=== PATIENT | female | born 1940 | race Caucasian/White ===

== ENCOUNTER 2017-06-02 22:36 | Inpatient (IN) | payer MEDICARE ==
[~2017-06-02] VITALS: Ht 157.5 cm; Wt 56.8 kg
[~2017-06-02 22:36] MED LIST: ACYC-202 PO; ASPI-1094 PO; BIOT10006 PO; CALC-206 PO; CARB200T40 PO; CARB25PO PO; DIPH1TAB PO; FERR134T2 PO; HOME O2; LEVO112T25 PO; LOSA25TA96 PO; MULT-1074 PO; NAPR500T4 PO; POTA10TA19 PO; RAW PROBIOTICS PO; SUPER LYSINE PO; TRIA1CAP6 PO
[2017-06-02] MEDS ORDERED: ondansetron/PF 4mg/2ml inj IV ONE (22:50)
[2017-06-02 23:09] LABS: BASOPHILS % (AUTO) 0.2 % (0-1); EOSINOPHILS # (AUTO) 0.1 X10'3 (0-0.9); EOSINOPHILS % (AUTO) 2.4 % (0-6); HEMATOCRIT 29.9 % (35.0-45.0); HEMOGLOBIN 9.9 g/dl (12.0-16.0); LYMPHOCYTES # (AUTO) 0.6 X10'3 (1.1-4.8); LYMPHOCYTES % (AUTO) 9.4 % (21-51); MEAN CORPUSCULAR HEMOGLOBIN 30.4 PG (27.0-31.0); MEAN CORPUSCULAR HGB CONC 33.2 % (33.0-36.5); MEAN CORPUSCULAR VOLUME 91.7 FL (78-98); MEAN PLATELET VOLUME 6.1 FL (7.4-10.4); MONOCYTES # (AUTO) 0.5 X10'3 (0-0.9); MONOCYTES % (AUTO) 7.6 % (2-12); NEUTROPHILS # (AUTO) 4.9 X10'3 (1.8-7.7); NEUTROPHILS % (AUTO) 80.4 % (42-75); PLATELET COUNT 246 X10'3 (140-440); RED BLOOD COUNT 3.26 X10'6 (4.20-5.60); RED CELL DISTRIBUTION WIDTH 15.5 % (11.5-14.5); WHITE BLOOD COUNT 6.1 X10'3 (4.5-11.0)
[2017-06-02 23:21] LABS: PARTIAL THROMBOPLASTIN TIME 26 SECONDS (22-32); PROTHROMBIN TIME 10.1 SECONDS (9.0-12.0)
[2017-06-02 23:23] LABS: ALANINE AMINOTRANSFERASE 28 U/L (12-78); ALBUMIN 3.2 G/DL (3.4-5.0); ALBUMIN/GLOBULIN RATIO 0.8 (1.1-1.5); ALKALINE PHOSPHATASE 90 IU/L (46-116); ANION GAP 9 (8-16); ASPARTATE AMINO TRANSFERASE 26 U/L (10-37); BILIRUBIN,TOTAL 0.2 MG/DL (0.1-1.0); BLOOD UREA NITROGEN 40 MG/DL (7-18); BUN/CREATININE RATIO 34.5 (6.6-38.0); CALCIUM 9.1 MG/DL (8.5-10.1); CHLORIDE 107 MMOL/L (99-107); CREATININE 1.16 MG/DL (0.40-0.90); GLUCOSE 129 MG/DL (70-104); POTASSIUM 3.9 MMOL/L (3.5-5.1); SODIUM 140 MMOL/L (135-145); TOTAL CARBON DIOXIDE 24.2 MMOL/L (24-32); TOTAL PROTEIN 7.3 G/DL (6.4-8.2); eGFR 45 ML/MIN
[2017-06-02 23:58] LABS: CLARITY,URINE SLIGHTLY CLOUDY (Clear); COLOR,URINE STRAW (Yellow); GLUCOSE, URINE NEGATIVE (Neg); KETONES,URINE NEGATIVE (Neg); LEUKOCYTE ESTERASE ,URINE NEGATIVE (Neg); NITRITES, URINE NEGATIVE (Neg); OCCULT BLOOD,URINE LARGE (Neg); PH,URINE 5.5 (4.8-8.0); PROTEIN,URINE NEGATIVE (Neg); UROBILINOGEN,URINE 0.2 E.U/dL (0.2-1.0)
[2017-06-02 23:59] LABS: UA COLLECTION TYPE FOLEY CATH
[2017-06-03] VITALS (17 sets, daily range): BP systolic 96–132; BP diastolic 58–76
[2017-06-03 00:06] LABS: RBC,URINE 50-100 /HPF (0-2); TRANSITIONAL EPI CELLS,URINE FEW /HPF
[2017-06-03 00:07] LABS: BACTERIA,URINE NONE SEEN /HPF (Neg); MUCUS STRANDS FEW /LPF (Neg); SQUAMOUS EPITHELIAL CELL,UR NONE SEEN /LPF (FEW); WBC,URINE NONE SEEN /HPF (0-4)
[2017-06-03] MEDS: fentaNYL/PF 50MCG/1 ML 2ML syringe IV PRN ×3 (00:58→10:25)
[2017-06-03] MEDS ORDERED: fentaNYL/PF 50MCG/1 ML 2ML syringe IV ONE (02:25)
[2017-06-03] MEDS ORDERED: mag hydrox/Alum hydrox/simeth 30ml oral suspension PO PRN (03:35)
[2017-06-03] MEDS ORDERED: acetaminophen 325mg tablet PO PRN ×2 (03:35)
[2017-06-03] MEDS: normal saline 1000ml 1,000 ML IV SCH ×4 (05:09→23:04)
[2017-06-03] MEDS: ferrous sulfate 325mg tablet PO SCH (10:25)
[2017-06-03] MEDS: levoTHYROXINE 112mcg tablet PO SCH (10:25)
[2017-06-03] MEDS: multivitamins, therapeutics tablet PO SCH (10:26)
[2017-06-03] MEDS: levetiracetam 100mg/ml oral solution 5ml UD cup PO SCH ×2 (10:51→22:58)
[2017-06-03] MEDS: HYDROmorphone inj. 0.5 MG/0.5 ML DISP.SYRIN IV PRN ×2 (10:51→15:21)
[2017-06-03] MEDS: ondansetron/PF 4mg/2ml inj IV PRN (10:55)
[2017-06-03] MEDS ORDERED: CEFAZOLIN SODIUM/NORMAL SALINE 100 ML IV ONE (15:00)
[2017-06-03] MEDS ORDERED: vancomycin 1,000mg inj ONE (15:12)
[2017-06-03] MEDS ORDERED: ringers solution, lacted 1,000 ML IV SCH (17:27)
[2017-06-03] MEDS ORDERED: meperidine/PF 25mg/ml syringe IV PRN ×2 (17:30)
[2017-06-03] MEDS ORDERED: proCHLORperazine 10 MG/2 ml inj IV PRN (17:30)
[2017-06-03] MEDS ORDERED: ondansetron/PF 4mg/2ml inj IV PRN (17:30)
[2017-06-03 18:29] LABS: BASOPHILS % (AUTO) 0.3 % (0-1); EOSINOPHILS # (AUTO) 0.1 X10'3 (0-0.9); EOSINOPHILS % (AUTO) 2.3 % (0-6); LYMPHOCYTES # (AUTO) 0.5 X10'3 (1.1-4.8); LYMPHOCYTES % (AUTO) 11.6 % (21-51); MEAN CORPUSCULAR HEMOGLOBIN 30.7 PG (27.0-31.0); MEAN CORPUSCULAR HGB CONC 32.8 % (33.0-36.5); MEAN CORPUSCULAR VOLUME 93.5 FL (78-98); MEAN PLATELET VOLUME 6.7 FL (7.4-10.4); MONOCYTES # (AUTO) 0.5 X10'3 (0-0.9); MONOCYTES % (AUTO) 11.5 % (2-12); NEUTROPHILS # (AUTO) 3.4 X10'3 (1.8-7.7); NEUTROPHILS % (AUTO) 74.3 % (42-75); PRE OP PLATELET COUNT 174 X10'3 (140-440); RED BLOOD COUNT 2.67 X10'6 (4.20-5.60); RED CELL DISTRIBUTION WIDTH 15.9 % (11.5-14.5)
[2017-06-03] MEDS ORDERED: sevoflurane 250ml liquid IH ONE (18:31)
[2017-06-03] MEDS ORDERED: tetracaine 1% (10mg/ml) pres. free inj. ONE (18:33)
[2017-06-03] MEDS ORDERED: fentaNYL/PF 50MCG/1 ML 2ML syringe ONE (18:35)
[2017-06-03] MEDS ORDERED: midazolam 2 mg/2 ml injection ONE (18:35)
[2017-06-03 18:37] LABS: PRE OP HEMOGLOBIN 8.2 g/dL (12.0-16.0)
[2017-06-03] MEDS ORDERED: ePHEDrine 50MG/ML INJ. ONE (19:07)
[2017-06-03] MEDS ORDERED: propofol inj 20 ML IV ONE (21:32)
[2017-06-03] MEDS: meperidine/PF 25mg/ml syringe IV PRN ×2 (21:47→22:30)
[2017-06-03 22:11] LABS: ISTAT CREATININE 0.8 mg/dL (0.6-1.1); ISTAT HGB 8.8 g/dl (12.0-16.0); ISTAT IONIZED CALCIUM 1.24 mmol/L (1.03-1.32)
[2017-06-03] MEDS: CEFAZOLIN SODIUM/NORMAL SALINE 100 ML IV SCH (23:41)
[2017-06-04] VITALS (12 sets, daily range): BP systolic 84–132; BP diastolic 51–74
[2017-06-04] MEDS: HYDROmorphone inj. 0.5 MG/0.5 ML DISP.SYRIN IV PRN ×2 (00:18→04:32)
[2017-06-04 06:00] LABS: BASOPHILS % (AUTO) 0.1 % (0-1); EOSINOPHILS # (AUTO) 0.1 X10'3 (0-0.9); EOSINOPHILS % (AUTO) 1.3 % (0-6); HEMATOCRIT 23.7 % (35.0-45.0); HEMOGLOBIN 7.9 g/dl (12.0-16.0); LYMPHOCYTES # (AUTO) 0.3 X10'3 (1.1-4.8); LYMPHOCYTES % (AUTO) 5.6 % (21-51); MEAN CORPUSCULAR HEMOGLOBIN 30.8 PG (27.0-31.0); MEAN CORPUSCULAR HGB CONC 33.1 % (33.0-36.5); MEAN CORPUSCULAR VOLUME 92.8 FL (78-98); MEAN PLATELET VOLUME 6.8 FL (7.4-10.4); MONOCYTES # (AUTO) 0.6 X10'3 (0-0.9); MONOCYTES % (AUTO) 11.1 % (2-12); NEUTROPHILS # (AUTO) 4.5 X10'3 (1.8-7.7); NEUTROPHILS % (AUTO) 81.9 % (42-75); PLATELET COUNT 147 X10'3 (140-440); RED BLOOD COUNT 2.55 X10'6 (4.20-5.60); RED CELL DISTRIBUTION WIDTH 16.2 % (11.5-14.5); WHITE BLOOD COUNT 5.5 X10'3 (4.5-11.0)
[2017-06-04] MEDS: LACTOBACILLUS RHAMNOSUS GG 15 billion unit sprinkle caps PO SCH (07:25)
[2017-06-04] MEDS: levoTHYROXINE 112mcg tablet PO SCH (07:25)
[2017-06-04] MEDS: CEFAZOLIN SODIUM/NORMAL SALINE 100 ML IV SCH (07:26)
[2017-06-04] MEDS: aspirin 325mg tablet, delayed-release (Ecotrin) PO SCH (07:27)
[2017-06-04] MEDS: levetiracetam 100mg/ml oral solution 5ml UD cup PO SCH ×2 (07:27→21:22)
[2017-06-04] MEDS: multivitamins, therapeutics tablet PO SCH (07:27)
[2017-06-04 07:28] LABS: ALBUMIN 2.4 G/DL (3.4-5.0); ANION GAP 12 (8-16); BLOOD UREA NITROGEN 23 MG/DL (7-18); BUN/CREATININE RATIO 22.8 (6.6-38.0); CALCIUM 7.4 MG/DL (8.5-10.1); CHLORIDE 109 MMOL/L (99-107); CREATININE 1.01 MG/DL (0.40-0.90); GLUCOSE 156 MG/DL (70-104); POTASSIUM 3.9 MMOL/L (3.5-5.1); SODIUM 139 MMOL/L (135-145); TOTAL CARBON DIOXIDE 18.4 MMOL/L (24-32); eGFR 53 ML/MIN
[2017-06-04] MEDS: normal saline 1000ml 1,000 ML IV SCH (07:28)
[2017-06-04] MEDS: HYDROcodone/acetaminophen 10/325mg tab PO PRN ×3 (07:30→17:19)
[2017-06-04] MEDS: magnesium hydroxide 30ml (MOM) UD suspension PO PRN (13:04)
[2017-06-05] VITALS (10 sets, daily range): BP systolic 75–118; BP diastolic 40–57
[2017-06-05] MEDS: normal saline 1000ml 1,000 ML IV SCH ×2 (00:36→19:30)
[2017-06-05] MEDS: HYDROmorphone inj. 0.5 MG/0.5 ML DISP.SYRIN IV PRN ×2 (00:39→07:01)
[2017-06-05] MEDS: HYDROcodone/acetaminophen 10/325mg tab PO PRN ×3 (05:40→13:57)
[2017-06-05 06:59] LABS: ALBUMIN 2.1 G/DL (3.4-5.0); ANION GAP 9 (8-16); BLOOD UREA NITROGEN 23 MG/DL (7-18); CALCIUM 7.2 MG/DL (8.5-10.1); CHLORIDE 107 MMOL/L (99-107); GLUCOSE 100 MG/DL (70-104); POTASSIUM 3.7 MMOL/L (3.5-5.1); SODIUM 136 MMOL/L (135-145); TOTAL CARBON DIOXIDE 20.4 MMOL/L (24-32); eGFR 54 ML/MIN
[2017-06-05 07:06] LABS: BASOPHILS % (AUTO) 0.2 % (0-1); EOSINOPHILS % (AUTO) 0.9 % (0-6); HEMATOCRIT 22.8 % (35.0-45.0); HEMOGLOBIN 7.7 g/dl (12.0-16.0); LYMPHOCYTES # (AUTO) 0.7 X10'3 (1.1-4.8); LYMPHOCYTES % (AUTO) 17.1 % (21-51); MEAN CORPUSCULAR HEMOGLOBIN 30.6 PG (27.0-31.0); MEAN CORPUSCULAR HGB CONC 33.9 % (33.0-36.5); MEAN CORPUSCULAR VOLUME 90.3 FL (78-98); MEAN PLATELET VOLUME 6.8 FL (7.4-10.4); MONOCYTES # (AUTO) 0.6 X10'3 (0-0.9); MONOCYTES % (AUTO) 13.5 % (2-12); NEUTROPHILS # (AUTO) 2.9 X10'3 (1.8-7.7); NEUTROPHILS % (AUTO) 68.3 % (42-75); PLATELET COUNT 101 X10'3 (140-440); RED BLOOD COUNT 2.52 X10'6 (4.20-5.60); RED CELL DISTRIBUTION WIDTH 16.3 % (11.5-14.5); WHITE BLOOD COUNT 4.2 X10'3 (4.5-11.0)
[2017-06-05] MEDS: ferrous sulfate 325mg tablet PO SCH (07:58)
[2017-06-05] MEDS: levetiracetam 100mg/ml oral solution 5ml UD cup PO SCH ×2 (07:58→19:45)
[2017-06-05] MEDS: levoTHYROXINE 112mcg tablet PO SCH (07:59)
[2017-06-05] MEDS: LACTOBACILLUS RHAMNOSUS GG 15 billion unit sprinkle caps PO SCH (07:59)
[2017-06-05] MEDS: aspirin 325mg tablet, delayed-release (Ecotrin) PO SCH (07:59)
[2017-06-05] MEDS: multivitamins, therapeutics tablet PO SCH (07:59)
[2017-06-05] MEDS ORDERED: LEVO500T2 PO (08:03)
[2017-06-05] MEDS ORDERED: normal saline 250ml IV soln 250 ML IV ONE (18:30)
[2017-06-05] MEDS ORDERED: normal saline 1000ml 1,000 ML IV ONE (18:50)
[2017-06-05] MEDS: nystatin 15 GM powder TP SCH ×2 (19:45→21:00)
[2017-06-06] MEDS: HYDROcodone/acetaminophen 10/325mg tab PO PRN ×5 (04:00→22:00)
[2017-06-06 06:00] VITALS: BP_SYST 107; BP_SYST 122; BP_SYST 88; BP_DIAS 48; BP_DIAS 63; BP_DIAS 64
[2017-06-06] MEDS: normal saline 1000ml 1,000 ML IV SCH ×2 (06:00→14:50)
[2017-06-06 06:14] LABS: BASOPHILS % (AUTO) 0.2 % (0-1); EOSINOPHILS # (AUTO) 0.1 X10'3 (0-0.9); EOSINOPHILS % (AUTO) 2.8 % (0-6); HEMOGLOBIN 7.4 g/dl (12.0-16.0); LYMPHOCYTES # (AUTO) 0.7 X10'3 (1.1-4.8); LYMPHOCYTES % (AUTO) 16.5 % (21-51); MEAN CORPUSCULAR HEMOGLOBIN 30.2 PG (27.0-31.0); MEAN CORPUSCULAR HGB CONC 33.4 % (33.0-36.5); MEAN CORPUSCULAR VOLUME 90.4 FL (78-98); MEAN PLATELET VOLUME 7.1 FL (7.4-10.4); MONOCYTES # (AUTO) 0.5 X10'3 (0-0.9); MONOCYTES % (AUTO) 12.3 % (2-12); NEUTROPHILS # (AUTO) 2.8 X10'3 (1.8-7.7); NEUTROPHILS % (AUTO) 68.2 % (42-75); PLATELET COUNT 90 X10'3 (140-440); RED BLOOD COUNT 2.44 X10'6 (4.20-5.60); RED CELL DISTRIBUTION WIDTH 16.1 % (11.5-14.5); WHITE BLOOD COUNT 4.2 X10'3 (4.5-11.0)
[2017-06-06 06:37] LABS: ALBUMIN 1.9 G/DL (3.4-5.0); ANION GAP 7 (8-16); BLOOD UREA NITROGEN 24 MG/DL (7-18); BUN/CREATININE RATIO 24.7 (6.6-38.0); CALCIUM 7.3 MG/DL (8.5-10.1); CHLORIDE 107 MMOL/L (99-107); CREATININE 0.97 MG/DL (0.40-0.90); GLUCOSE 104 MG/DL (70-104); POTASSIUM 3.5 MMOL/L (3.5-5.1); SODIUM 134 MMOL/L (135-145); TOTAL CARBON DIOXIDE 20.1 MMOL/L (24-32); eGFR 56 ML/MIN
[2017-06-06] MEDS: levoTHYROXINE 112mcg tablet PO SCH (07:00)
[2017-06-06] MEDS: LACTOBACILLUS RHAMNOSUS GG 15 billion unit sprinkle caps PO SCH (07:30)
[2017-06-06] MEDS: HYDROmorphone inj. 0.5 MG/0.5 ML DISP.SYRIN IV PRN ×2 (08:13→14:47)
[2017-06-06] MEDS: aspirin 325mg tablet, delayed-release (Ecotrin) PO SCH (08:45)
[2017-06-06] MEDS: levetiracetam 100mg/ml oral solution 5ml UD cup PO SCH (08:45)
[2017-06-06] MEDS: nystatin 15 GM powder TP SCH ×3 (08:45→19:42)
[2017-06-06] MEDS: multivitamins, therapeutics tablet PO SCH (08:45)
[2017-06-06 08:58] VITALS: BP 115/60
[2017-06-06 10:00] VITALS: BP 73/52
[2017-06-06 10:05] VITALS: BP 88/48
[2017-06-06] MEDS ORDERED: bisacodyl 10mg suppository rectal RC STA (11:12)
[2017-06-06] MEDS ORDERED: magnesium hydroxide 30ml (MOM) UD suspension PO PRN (11:15)
[2017-06-06] MEDS: magnesium hydroxide 30ml (MOM) UD suspension PO PRN (16:45)
[2017-06-06 18:10] VITALS: BP 118/63
[2017-06-06 19:10] LABS: OCCULT BLOOD STOOL NEGATIVE (Neg)
[2017-06-06] MEDS: levetiracetam 250mg tablet PO SCH (19:41)
[2017-06-06 22:14] VITALS: BP 104/97
[2017-06-07] MEDS: normal saline 1000ml 1,000 ML IV SCH ×2 (02:35→11:55)
[2017-06-07] MEDS: ondansetron/PF 4mg/2ml inj IV PRN (03:28)
[2017-06-07] MEDS: HYDROcodone/acetaminophen 10/325mg tab PO PRN (05:52)
[2017-06-07 06:00] VITALS: BP 111/69
[2017-06-07 06:06] LABS: BASOPHILS % (AUTO) 0.1 % (0-1); EOSINOPHILS # (AUTO) 0.1 X10'3 (0-0.9); EOSINOPHILS % (AUTO) 2.8 % (0-6); HEMOGLOBIN 7.3 g/dl (12.0-16.0); LYMPHOCYTES # (AUTO) 0.4 X10'3 (1.1-4.8); LYMPHOCYTES % (AUTO) 7.3 % (21-51); MEAN CORPUSCULAR HEMOGLOBIN 30.2 PG (27.0-31.0); MEAN CORPUSCULAR HGB CONC 33.5 % (33.0-36.5); MEAN CORPUSCULAR VOLUME 90.4 FL (78-98); MONOCYTES # (AUTO) 0.4 X10'3 (0-0.9); MONOCYTES % (AUTO) 8.3 % (2-12); NEUTROPHILS # (AUTO) 4.4 X10'3 (1.8-7.7); NEUTROPHILS % (AUTO) 81.5 % (42-75); PLATELET COUNT 103 X10'3 (140-440); RED CELL DISTRIBUTION WIDTH 15.6 % (11.5-14.5); WHITE BLOOD COUNT 5.3 X10'3 (4.5-11.0)
[2017-06-07 06:18] LABS: HEMATOCRIT 21.7 % (35.0-45.0)
[2017-06-07 06:32] LABS: ALBUMIN 1.8 G/DL (3.4-5.0); ANION GAP 11 (8-16); BLOOD UREA NITROGEN 27 MG/DL (7-18); BUN/CREATININE RATIO 27.3 (6.6-38.0); CALCIUM 7.3 MG/DL (8.5-10.1); CHLORIDE 107 MMOL/L (99-107); CREATININE 0.99 MG/DL (0.40-0.90); GLUCOSE 108 MG/DL (70-104); POTASSIUM 3.6 MMOL/L (3.5-5.1); SODIUM 140 MMOL/L (135-145); TOTAL CARBON DIOXIDE 21.6 MMOL/L (24-32); eGFR 54 ML/MIN
[2017-06-07] MEDS: levoTHYROXINE 112mcg tablet PO SCH (07:00)
[2017-06-07] MEDS: LACTOBACILLUS RHAMNOSUS GG 15 billion unit sprinkle caps PO SCH (07:30)
[2017-06-07] MEDS ORDERED: metoclopramide 5 mg/ml inj IV PRN (07:50)
[2017-06-07] MEDS: multivitamins, therapeutics tablet PO SCH (08:00)
[2017-06-07] MEDS: ferrous sulfate 325mg tablet PO SCH (08:00)
[2017-06-07] MEDS: nystatin 15 GM powder TP SCH ×2 (08:32→12:49)
[2017-06-07] MEDS: levetiracetam 250mg tablet PO SCH (08:56)
[2017-06-07 10:00] VITALS: BP 164/96
== END 2017-06-07 15:15 | DRG 481 ==
LOC: ER 22:37 → ED HOLD 06-03 03:31 → ORTHO 4S 06-03 04:21
PROVIDERS: ADMIT Internal Medicine; ATTEND Anesthesiology
PROC: 30233N1 Transfusion of Nonautologous Red Blood Cells into Peripheral Vein, Percutaneous Approach (ICD-10-PCS; 2017-06-03)
PROC: 0QSC04Z Reposition Left Lower Femur with Internal Fixation Device, Open Approach (ICD-10-PCS; principal; 2017-06-03 18:31)
DX: S72.342A Displaced spiral fracture of shaft of left femur, initial encounter for closed fracture (principal); D62 Acute posthemorrhagic anemia; M97.12XA Periprosthetic fracture around internal prosthetic left knee joint, initial encounter; I48.91 Unspecified atrial fibrillation; G40.909 Epilepsy, unspecified, not intractable, without status epilepticus; E03.9 Hypothyroidism, unspecified; D50.9 Iron deficiency anemia, unspecified; F32.9 Major depressive disorder, single episode, unspecified; M54.9 Dorsalgia, unspecified; G89.29 Other chronic pain; I10 Essential (primary) hypertension; K21.9 Gastro-esophageal reflux disease without esophagitis; W18.39XA Other fall on same level, initial encounter; Z96.652 Presence of left artificial knee joint; Z90.89 Acquired absence of other organs; Z98.891 History of uterine scar from previous surgery; Z95.0 Presence of cardiac pacemaker; Z88.8 Allergy status to other drugs, medicaments and biological substances; Z79.82 Long term (current) use of aspirin; Y93.89 Activity, other specified; Y99.8 Other external cause status; Y92.89 Other specified places as the place of occurrence of the external cause
CPT/HCPCS: 29505; 36415; 71045; 73502; 73552; 76001; 80047; 80048; 80053; 81001; 82272; 84439; 84443; 85025; 85610; 85730; 86870; 86885; 86900; 86901; 86902; 86905; 86920; 86922; 87070; 93005; 96374; 97110; 97161; 97530; 97535; 99285; A4315; A6212; A6213; A6222; A6255; A6449; A7000; J0690; J1170; J1644; J2175; J2250; J2405; J2704; J2765; J3010; J3370; J7030; J7120; P9016

== ENCOUNTER 2017-06-11 06:48 | Day surgery (SDC) | payer MEDICARE ==
[~2017-06-11 06:48] MED LIST changes: +LEVO500T2 PO
== END 2017-06-11 07:32 ==
LOC: SSTAY O 06:48
PROVIDERS: ATTEND Family Medicine
DX: D64.9 Anemia, unspecified (principal)
CPT/HCPCS: 36415; 86870; 86885; 86900; 86901; 86902; 86905; 86922

== ENCOUNTER 2017-06-15 07:43 | Day surgery (SDC) | payer MEDICARE ==
[2017-06-15] VITALS (8 sets, daily range): BP systolic 109–139; BP diastolic 70–81
[~2017-06-15] VITALS: Ht 157.5 cm; Wt 59.0 kg
== END 2017-06-15 13:40 | disposition home or self-care (01) ==
LOC: SSTAY O 07:43
PROVIDERS: ATTEND Family Medicine
DX: D64.9 Anemia, unspecified (principal); I10 Essential (primary) hypertension; E03.9 Hypothyroidism, unspecified; G40.419 Other generalized epilepsy and epileptic syndromes, intractable, without status epilepticus; I48.91 Unspecified atrial fibrillation; Z88.6 Allergy status to analgesic agent; Z88.8 Allergy status to other drugs, medicaments and biological substances; Z79.82 Long term (current) use of aspirin; Z79.899 Other long term (current) drug therapy
CPT/HCPCS: 36415; 36430; 86870; 86880; 86885; 86900; 86901; 86922; J7030; P9016

== ENCOUNTER 2017-11-11 14:40 | Inpatient (IN) | payer MEDICARE ==
[~2017-11-11] VITALS: Ht 160 cm; Wt 67.3 kg
[2017-11-11] VITALS (10 sets, daily range): BP systolic 71–94; BP diastolic 39–47
[~2017-11-11 14:40] MED LIST changes: +NAPR-996 PO; -NAPR500T4 PO
[2017-11-11] MEDS ORDERED: normal saline 1000ml 1,000 ML IV ONE (15:03)
[2017-11-11] MEDS ORDERED: ondansetron/PF 4mg/2ml inj IV ONE (15:05)
[2017-11-11] MEDS ORDERED: pantoprazole 40 MG vial IV ONE (15:05)
[2017-11-11 15:30] LABS: BASOPHILS % (AUTO) 0.3 % (0-1); EOSINOPHILS # (AUTO) 0.1 X10'3 (0-0.9); EOSINOPHILS % (AUTO) 1.5 % (0-6); LYMPHOCYTES # (AUTO) 1.9 X10'3 (1.1-4.8); LYMPHOCYTES % (AUTO) 20.8 % (21-51); MEAN CORPUSCULAR HEMOGLOBIN 34.5 PG (27.0-31.0); MEAN CORPUSCULAR VOLUME 101.7 FL (78-98); MEAN PLATELET VOLUME 6.4 FL (7.4-10.4); MONOCYTES # (AUTO) 0.6 X10'3 (0-0.9); MONOCYTES % (AUTO) 7.1 % (2-12); NEUTROPHILS # (AUTO) 6.3 X10'3 (1.8-7.7); NEUTROPHILS % (AUTO) 70.3 % (42-75); PLATELET COUNT 291 X10'3 (140-440); RED BLOOD COUNT 1.45 X10'6 (4.20-5.60); RED CELL DISTRIBUTION WIDTH 15.7 % (11.5-14.5)
[2017-11-11 15:35] LABS: HEMATOCRIT 14.7 % (35.0-45.0)
[2017-11-11 15:40] LABS: PARTIAL THROMBOPLASTIN TIME 22 SECONDS (22-32); PROTHROMBIN TIME 10.1 SECONDS (9.0-12.0)
[2017-11-11] MEDS ORDERED: normal saline 1000ml 1,000 ML IV SCH (15:49)
[2017-11-11 15:50] LABS: ALANINE AMINOTRANSFERASE 35 U/L (12-78); ALBUMIN 2.7 G/DL (3.4-5.0); ALBUMIN/GLOBULIN RATIO 0.9 (1.1-1.5); ALKALINE PHOSPHATASE 74 IU/L (46-116); ANION GAP 15 (8-16); ASPARTATE AMINO TRANSFERASE 38 U/L (10-37); BILIRUBIN,TOTAL 0.2 MG/DL (0.1-1.0); BLOOD UREA NITROGEN 89 MG/DL (7-18); BUN/CREATININE RATIO 66.9 (6.6-38.0); CALCIUM 8.1 MG/DL (8.5-10.1); CHLORIDE 112 MMOL/L (99-107); CREATININE 1.33 MG/DL (0.40-0.90); GLUCOSE 93 MG/DL (70-104); LIPASE 386 U/L (73-393); MAGNESIUM 2.1 MG/DL (1.5-2.4); POTASSIUM 3.2 MMOL/L (3.5-5.1); SODIUM 144 MMOL/L (135-145); TOTAL CARBON DIOXIDE 17.5 MMOL/L (24-32); TOTAL PROTEIN 5.8 G/DL (6.4-8.2); eGFR 39 ML/MIN
[2017-11-11] MEDS ORDERED: ipratropium/albuterol 3ml nebule NEB PRN (15:50)
[2017-11-11] MEDS ORDERED: magnesium/D5W IVPB 50 ML IV PRN (15:50)
[2017-11-11] MEDS ORDERED: potassium Cl 20 mEq SR tablet PO PRN ×2 (15:50)
[2017-11-11] MEDS ORDERED: magnesium 4gm in 100ml NS 100 ML IV PRN ×2 (15:50→18:35)
[2017-11-11] MEDS ORDERED: magnesium Cl slow-release 64mg tablet PO PRN (15:50)
[2017-11-11] MEDS ORDERED: acetaminophen 325mg tablet PO PRN ×2 (15:50)
[2017-11-11] MEDS ORDERED: sodium phosphate inj. 30 MMOL in dextrose 5%-water 250 ML IV PRN (15:50)
[2017-11-11] MEDS ORDERED: Neutra Phos packet PO PRN (15:50)
[2017-11-11] MEDS ORDERED: sodium phosphate inj. 15 MMOL in dextrose 5%-water 150 ML IV PRN (15:50)
[2017-11-11] MEDS: pantoprazole 40MG/NS 100ML BAG 100 ML IV SCH ×2 (16:30→21:39)
[2017-11-11] MEDS ORDERED: LEVE500T PO (17:50)
[2017-11-11] MEDS ORDERED: HYDROcodone/acetaminophen 5mg/325mg tablet PO PRN (18:15)
[2017-11-11] MEDS ORDERED: magnesium/D5W IVPB 100 ML IV PRN (18:35)
[2017-11-11] MEDS ORDERED: potassium Cl 40MEQ/250ML bag 250 ML IV PRN ×2 (18:35)
[2017-11-11] MEDS ORDERED: potassium Cl 40MEQ/NS 500ml 500 ML IV PRN ×2 (18:40)
[2017-11-11] MEDS: HYDROcodone/acetaminophen 10/325mg tab PO PRN ×2 (19:11→23:51)
[2017-11-11] MEDS: sodium bicarbonate (8.4%) inj. 150 MEQ in dextrose 5%-water 1,000 ML IV SCH (19:16)
[2017-11-11] MEDS: ondansetron/PF 4mg/2ml inj IV PRN (19:42)
[2017-11-11] MEDS ORDERED: levetiracetam 250mg tablet PO SCH (20:00)
[2017-11-11] MEDS: levetiracetam 250mg tablet PO SCH (20:27)
[2017-11-11] MEDS ORDERED: albumin (Human) 5% 250 ML IV solution IV STA (22:52)
[2017-11-12] VITALS (32 sets, daily range): BP systolic 73–138; BP diastolic 44–74
[2017-11-12] MEDS: pantoprazole 40MG/NS 100ML BAG 100 ML IV SCH ×5 (02:29→20:03)
[2017-11-12 04:02] LABS: BASOPHILS % (AUTO) 0.3 % (0-1); EOSINOPHILS # (AUTO) 0.2 X10'3 (0-0.9); EOSINOPHILS % (AUTO) 2.2 % (0-6); LYMPHOCYTES # (AUTO) 1.5 X10'3 (1.1-4.8); LYMPHOCYTES % (AUTO) 20.8 % (21-51); MEAN CORPUSCULAR HEMOGLOBIN 32.6 PG (27.0-31.0); MEAN CORPUSCULAR HGB CONC 34.6 % (33.0-36.5); MEAN CORPUSCULAR VOLUME 94.4 FL (78-98); MEAN PLATELET VOLUME 6.3 FL (7.4-10.4); MONOCYTES # (AUTO) 0.6 X10'3 (0-0.9); MONOCYTES % (AUTO) 9.1 % (2-12); NEUTROPHILS # (AUTO) 4.8 X10'3 (1.8-7.7); NEUTROPHILS % (AUTO) 67.6 % (42-75); PLATELET COUNT 194 X10'3 (140-440); RED BLOOD COUNT 2.15 X10'6 (4.20-5.60); RED CELL DISTRIBUTION WIDTH 17.9 % (11.5-14.5); WHITE BLOOD COUNT 7.1 X10'3 (4.5-11.0)
[2017-11-12] MEDS: HYDROcodone/acetaminophen 10/325mg tab PO PRN (04:19)
[2017-11-12 04:20] LABS: ALANINE AMINOTRANSFERASE 30 U/L (12-78); ALBUMIN 2.5 G/DL (3.4-5.0); ALBUMIN/GLOBULIN RATIO 0.9 (1.1-1.5); ALKALINE PHOSPHATASE 65 IU/L (46-116); ANION GAP 15 (8-16); ASPARTATE AMINO TRANSFERASE 37 U/L (10-37); BILIRUBIN,TOTAL 0.7 MG/DL (0.1-1.0); BLOOD UREA NITROGEN 63 MG/DL (7-18); BUN/CREATININE RATIO 57.3 (6.6-38.0); CALCIUM 7.6 MG/DL (8.5-10.1); CHLORIDE 114 MMOL/L (99-107); GLUCOSE 93 MG/DL (70-104); MAGNESIUM 2.2 MG/DL (1.5-2.4); POTASSIUM 3.7 MMOL/L (3.5-5.1); SODIUM 147 MMOL/L (135-145); TOTAL CARBON DIOXIDE 18.5 MMOL/L (24-32); TOTAL PROTEIN 5.3 G/DL (6.4-8.2); eGFR 48 ML/MIN
[2017-11-12 04:25] LABS: HEMATOCRIT 20.3 % (35.0-45.0)
[2017-11-12] MEDS ORDERED: LIDOcaine Viscous 15ml cup ONE (07:26)
[2017-11-12] MEDS ORDERED: MIDAZolam 5mg/5ml vial ONE ×2 (07:26→07:27)
[2017-11-12] MEDS ORDERED: fentaNYL/PF 50MCG/1 ML 2ML syringe ONE ×2 (07:26→07:27)
[2017-11-12] MEDS: levoTHYROXINE 112mcg tablet PO SCH (08:00)
[2017-11-12] MEDS: K and/or MAG REPLACEMENT MC SCH (08:00)
[2017-11-12] MEDS: multivitamins, therapeutics tablet PO SCH (08:00)
[2017-11-12] MEDS ORDERED: SUPER LYSINE PO SCH (08:00)
[2017-11-12] MEDS ORDERED: traMADol 50MG tablet PO PRN (09:15)
[2017-11-12 09:20] LABS: HEMATOCRIT 24.7 % (35.0-45.0); HEMOGLOBIN 8.5 g/dl (12.0-16.0); MEAN CORPUSCULAR HEMOGLOBIN 31.8 PG (27.0-31.0); MEAN CORPUSCULAR HGB CONC 34.2 % (33.0-36.5); MEAN CORPUSCULAR VOLUME 92.9 FL (78-98); MEAN PLATELET VOLUME 6.3 FL (7.4-10.4); PLATELET COUNT 184 X10'3 (140-440); RED BLOOD COUNT 2.66 X10'6 (4.20-5.60); RED CELL DISTRIBUTION WIDTH 17.5 % (11.5-14.5); WHITE BLOOD COUNT 5.7 X10'3 (4.5-11.0)
[2017-11-12] MEDS ORDERED: epiNEPHrine 0.1mg/ml 10ml syringe ONE (09:20)
[2017-11-12] MEDS: ondansetron/PF 4mg/2ml inj IV PRN ×2 (09:44→19:19)
[2017-11-12] MEDS: oxyCODONE IR 5mg (immed. release) tablet PO PRN ×2 (10:18→20:59)
[2017-11-12] MEDS: levetiracetam 250mg tablet PO SCH ×2 (11:30→19:56)
[2017-11-12 12:32] LABS: FERRITIN 394 NG/ML (8-252)
[2017-11-12] MEDS: sodium bicarbonate (8.4%) inj. 150 MEQ in dextrose 5%-water 1,000 ML IV SCH (12:35)
[2017-11-12 12:55] LABS: % IRON SATURATION 39 % (11-46); IRON 108 UG/DL (49-151); TOTAL IRON BINDING CAPACITY 274 UG/DL (259-388)
[2017-11-12 16:51] LABS: HEMATOCRIT 25.4 % (35.0-45.0); HEMOGLOBIN 8.6 g/dl (12.0-16.0); MEAN CORPUSCULAR HEMOGLOBIN 31.5 PG (27.0-31.0); MEAN CORPUSCULAR HGB CONC 33.9 % (33.0-36.5); MEAN CORPUSCULAR VOLUME 93.1 FL (78-98); MEAN PLATELET VOLUME 6.4 FL (7.4-10.4); PLATELET COUNT 188 X10'3 (140-440); RED BLOOD COUNT 2.73 X10'6 (4.20-5.60); RED CELL DISTRIBUTION WIDTH 17.8 % (11.5-14.5); WHITE BLOOD COUNT 8.3 X10'3 (4.5-11.0)
[2017-11-12] MEDS: traMADol 50MG tablet PO PRN (19:29)
[2017-11-12 23:06] LABS: HEMATOCRIT 23.5 % (35.0-45.0); MEAN CORPUSCULAR HEMOGLOBIN 31.4 PG (27.0-31.0); MEAN CORPUSCULAR VOLUME 92.3 FL (78-98); MEAN PLATELET VOLUME 6.1 FL (7.4-10.4); PLATELET COUNT 199 X10'3 (140-440); RED BLOOD COUNT 2.55 X10'6 (4.20-5.60); RED CELL DISTRIBUTION WIDTH 18.2 % (11.5-14.5); WHITE BLOOD COUNT 9.4 X10'3 (4.5-11.0)
[2017-11-13] VITALS (39 sets, daily range): BP systolic 93–164; BP diastolic 50–96
[2017-11-13] MEDS: pantoprazole 40MG/NS 100ML BAG 100 ML IV SCH ×5 (01:05→21:13)
[2017-11-13] MEDS: sodium bicarbonate (8.4%) inj. 150 MEQ in dextrose 5%-water 1,000 ML IV SCH ×2 (03:43→18:18)
[2017-11-13] MEDS: traMADol 50MG tablet PO PRN ×2 (03:43→19:15)
[2017-11-13 05:19] LABS: BASOPHILS % (AUTO) 0.2 % (0-1); EOSINOPHILS # (AUTO) 0.2 X10'3 (0-0.9); HEMATOCRIT 23.4 % (35.0-45.0); HEMOGLOBIN 7.9 g/dl (12.0-16.0); LYMPHOCYTES # (AUTO) 1.7 X10'3 (1.1-4.8); LYMPHOCYTES % (AUTO) 21.6 % (21-51); MEAN CORPUSCULAR HEMOGLOBIN 31.7 PG (27.0-31.0); MEAN CORPUSCULAR VOLUME 93.1 FL (78-98); MEAN PLATELET VOLUME 6.4 FL (7.4-10.4); MONOCYTES # (AUTO) 0.9 X10'3 (0-0.9); MONOCYTES % (AUTO) 10.7 % (2-12); NEUTROPHILS # (AUTO) 5.3 X10'3 (1.8-7.7); NEUTROPHILS % (AUTO) 65.5 % (42-75); PLATELET COUNT 176 X10'3 (140-440); RED BLOOD COUNT 2.51 X10'6 (4.20-5.60)
[2017-11-13 05:54] LABS: ALANINE AMINOTRANSFERASE 36 U/L (12-78); ALBUMIN 2.4 G/DL (3.4-5.0); ALBUMIN/GLOBULIN RATIO 0.9 (1.1-1.5); ALKALINE PHOSPHATASE 68 IU/L (46-116); ANION GAP 8 (8-16); ASPARTATE AMINO TRANSFERASE 43 U/L (10-37); BILIRUBIN,TOTAL 0.4 MG/DL (0.1-1.0); BLOOD UREA NITROGEN 29 MG/DL (7-18); BUN/CREATININE RATIO 32.6 (6.6-38.0); CALCIUM 7.6 MG/DL (8.5-10.1); CHLORIDE 110 MMOL/L (99-107); CREATININE 0.89 MG/DL (0.40-0.90); GLUCOSE 101 MG/DL (70-104); MAGNESIUM 1.8 MG/DL (1.5-2.4); SODIUM 144 MMOL/L (135-145); TOTAL CARBON DIOXIDE 26.5 MMOL/L (24-32); TOTAL PROTEIN 5.2 G/DL (6.4-8.2); eGFR 61 ML/MIN
[2017-11-13] MEDS ORDERED: potassium Cl oral solution 20 MEQ/15 ML PO PRN ×2 (06:33→06:34)
[2017-11-13] MEDS: K and/or MAG REPLACEMENT MC SCH (07:39)
[2017-11-13] MEDS: multivitamins, therapeutics tablet PO SCH (07:50)
[2017-11-13] MEDS: levetiracetam 250mg tablet PO SCH ×2 (07:50→20:26)
[2017-11-13] MEDS: levoTHYROXINE 112mcg tablet PO SCH (07:51)
[2017-11-13] MEDS: ferrous sulfate 325mg tablet PO SCH (08:04)
[2017-11-13] MEDS ORDERED: potassium Cl 20 mEq SR tablet PO PRN (12:50)
[2017-11-13] MEDS: potassium Cl 20 mEq SR tablet PO PRN ×2 (12:57→16:47)
[2017-11-13] MEDS: oxyCODONE IR 5mg (immed. release) tablet PO PRN (16:47)
[2017-11-13] MEDS ORDERED: oxyCODONE IR 5mg (immed. release) tablet PO ONE (22:40)
[2017-11-13] MEDS ORDERED: cyclobenzaprine 10mg tablet PO ONE (22:40)
[2017-11-13] MEDS ORDERED: propofol 1000mg/100ml bottle 100 ML IV PRN (23:07)
[2017-11-13] MEDS ORDERED: propofol 1000mg/100ml bottle 100 ML IV ONE (23:09)
[2017-11-13] MEDS ORDERED: cyclobenzaprine 10mg tablet PO PRN (23:50)
[2017-11-14] VITALS (23 sets, daily range): BP systolic 90–132; BP diastolic 58–81
[2017-11-14] MEDS: pantoprazole 40MG/NS 100ML BAG 100 ML IV SCH ×4 (01:00→13:00)
[2017-11-14] MEDS ORDERED: cyclobenzaprine 10mg tablet PO PRN (02:05)
[2017-11-14 05:19] LABS: BASOPHILS % (AUTO) 0.2 % (0-1); EOSINOPHILS # (AUTO) 0.1 X10'3 (0-0.9); EOSINOPHILS % (AUTO) 1.1 % (0-6); HEMATOCRIT 26.8 % (35.0-45.0); HEMOGLOBIN 9.1 g/dl (12.0-16.0); LYMPHOCYTES # (AUTO) 1.1 X10'3 (1.1-4.8); LYMPHOCYTES % (AUTO) 10.6 % (21-51); MEAN CORPUSCULAR HEMOGLOBIN 31.3 PG (27.0-31.0); MEAN CORPUSCULAR HGB CONC 34.1 % (33.0-36.5); MEAN PLATELET VOLUME 6.3 FL (7.4-10.4); MONOCYTES # (AUTO) 0.7 X10'3 (0-0.9); MONOCYTES % (AUTO) 7.2 % (2-12); NEUTROPHILS # (AUTO) 8.3 X10'3 (1.8-7.7); NEUTROPHILS % (AUTO) 80.9 % (42-75); PLATELET COUNT 159 X10'3 (140-440); RED BLOOD COUNT 2.91 X10'6 (4.20-5.60); RED CELL DISTRIBUTION WIDTH 19.3 % (11.5-14.5); WHITE BLOOD COUNT 10.3 X10'3 (4.5-11.0)
[2017-11-14 05:45] LABS: ALANINE AMINOTRANSFERASE 34 U/L (12-78); ALBUMIN 2.3 G/DL (3.4-5.0); ALBUMIN/GLOBULIN RATIO 0.8 (1.1-1.5); ALKALINE PHOSPHATASE 73 IU/L (46-116); ANION GAP 5 (8-16); ASPARTATE AMINO TRANSFERASE 35 U/L (10-37); BILIRUBIN,TOTAL 0.6 MG/DL (0.1-1.0); BLOOD UREA NITROGEN 14 MG/DL (7-18); BUN/CREATININE RATIO 16.3 (6.6-38.0); CALCIUM 7.8 MG/DL (8.5-10.1); CHLORIDE 107 MMOL/L (99-107); CREATININE 0.86 MG/DL (0.40-0.90); GLUCOSE 114 MG/DL (70-104); MAGNESIUM 1.5 MG/DL (1.5-2.4); POTASSIUM 4.3 MMOL/L (3.5-5.1); SODIUM 141 MMOL/L (135-145); TOTAL CARBON DIOXIDE 28.6 MMOL/L (24-32); TOTAL PROTEIN 5.1 G/DL (6.4-8.2); eGFR 64 ML/MIN
[2017-11-14] MEDS: oxyCODONE IR 5mg (immed. release) tablet PO PRN ×3 (06:01→19:32)
[2017-11-14] MEDS: K and/or MAG REPLACEMENT MC SCH (08:00)
[2017-11-14] MEDS: levetiracetam 250mg tablet PO SCH ×2 (08:26→19:33)
[2017-11-14] MEDS: multivitamins, therapeutics tablet PO SCH (08:26)
[2017-11-14] MEDS: levoTHYROXINE 112mcg tablet PO SCH (08:26)
[2017-11-14] MEDS: sodium bicarbonate (8.4%) inj. 150 MEQ in dextrose 5%-water 1,000 ML IV SCH (10:44)
[2017-11-14 21:46] LABS: BASOPHILS % (AUTO) 0.2 % (0-1); EOSINOPHILS # (AUTO) 0.1 X10'3 (0-0.9); EOSINOPHILS % (AUTO) 1.5 % (0-6); HEMATOCRIT 28.7 % (35.0-45.0); HEMOGLOBIN 9.6 g/dl (12.0-16.0); LYMPHOCYTES # (AUTO) 1.2 X10'3 (1.1-4.8); LYMPHOCYTES % (AUTO) 12.5 % (21-51); MEAN CORPUSCULAR HEMOGLOBIN 31.4 PG (27.0-31.0); MEAN CORPUSCULAR HGB CONC 33.6 % (33.0-36.5); MEAN CORPUSCULAR VOLUME 93.4 FL (78-98); MEAN PLATELET VOLUME 6.3 FL (7.4-10.4); MONOCYTES # (AUTO) 0.8 X10'3 (0-0.9); NEUTROPHILS # (AUTO) 7.6 X10'3 (1.8-7.7); NEUTROPHILS % (AUTO) 77.8 % (42-75); PLATELET COUNT 179 X10'3 (140-440); RED BLOOD COUNT 3.07 X10'6 (4.20-5.60); RED CELL DISTRIBUTION WIDTH 20.9 % (11.5-14.5); WHITE BLOOD COUNT 9.8 X10'3 (4.5-11.0)
[2017-11-15] VITALS (16 sets, daily range): BP systolic 91–140; BP diastolic 57–82
[2017-11-15] MEDS: oxyCODONE IR 5mg (immed. release) tablet PO PRN ×5 (01:37→20:43)
[2017-11-15] MEDS: pantoprazole 40MG/NS 100ML BAG 100 ML IV SCH ×6 (01:38→19:44)
[2017-11-15] MEDS: mineral oil/petrolatum ophthal oint EACHEYE SCH ×5 (02:00→23:48)
[2017-11-15] MEDS: sodium bicarbonate (8.4%) inj. 150 MEQ in dextrose 5%-water 1,000 ML IV SCH (03:10)
[2017-11-15] MEDS: traMADol 50MG tablet PO PRN (04:17)
[2017-11-15 05:13] LABS: BASOPHILS % (AUTO) 0.1 % (0-1); EOSINOPHILS # (AUTO) 0.3 X10'3 (0-0.9); EOSINOPHILS % (AUTO) 3.4 % (0-6); HEMATOCRIT 30.1 % (35.0-45.0); HEMOGLOBIN 10.1 g/dl (12.0-16.0); LYMPHOCYTES # (AUTO) 1.5 X10'3 (1.1-4.8); LYMPHOCYTES % (AUTO) 17.4 % (21-51); MEAN CORPUSCULAR HGB CONC 33.5 % (33.0-36.5); MEAN CORPUSCULAR VOLUME 92.5 FL (78-98); MEAN PLATELET VOLUME 6.3 FL (7.4-10.4); MONOCYTES # (AUTO) 0.7 X10'3 (0-0.9); MONOCYTES % (AUTO) 8.4 % (2-12); NEUTROPHILS # (AUTO) 6.1 X10'3 (1.8-7.7); NEUTROPHILS % (AUTO) 70.7 % (42-75); PLATELET COUNT 160 X10'3 (140-440); RED BLOOD COUNT 3.26 X10'6 (4.20-5.60); RED CELL DISTRIBUTION WIDTH 20.8 % (11.5-14.5); WHITE BLOOD COUNT 8.7 X10'3 (4.5-11.0)
[2017-11-15 05:40] LABS: ALANINE AMINOTRANSFERASE 30 U/L (12-78); ALBUMIN 2.2 G/DL (3.4-5.0); ALBUMIN/GLOBULIN RATIO 0.7 (1.1-1.5); ALKALINE PHOSPHATASE 73 IU/L (46-116); ANION GAP 6 (8-16); ASPARTATE AMINO TRANSFERASE 32 U/L (10-37); BILIRUBIN,TOTAL 0.9 MG/DL (0.1-1.0); BLOOD UREA NITROGEN 13 MG/DL (7-18); BUN/CREATININE RATIO 14.4 (6.6-38.0); CALCIUM 7.8 MG/DL (8.5-10.1); CHLORIDE 103 MMOL/L (99-107); GLUCOSE 98 MG/DL (70-104); MAGNESIUM 1.6 MG/DL (1.5-2.4); PHOSPHORUS 2.9 MG/DL (2.3-4.5); POTASSIUM 4.1 MMOL/L (3.5-5.1); SODIUM 140 MMOL/L (135-145); TOTAL CARBON DIOXIDE 30.9 MMOL/L (24-32); TOTAL PROTEIN 5.4 G/DL (6.4-8.2); eGFR 61 ML/MIN
[2017-11-15] MEDS: levoTHYROXINE 112mcg tablet PO SCH (08:18)
[2017-11-15] MEDS: multivitamins, therapeutics tablet PO SCH (08:18)
[2017-11-15] MEDS: ferrous sulfate 325mg tablet PO SCH (08:19)
[2017-11-15] MEDS: levetiracetam 250mg tablet PO SCH ×2 (08:19→19:44)
[2017-11-15] MEDS: magnesium hydroxide 30ml (MOM) UD suspension PO PRN (22:27)
[2017-11-16] MEDS: pantoprazole 40MG/NS 100ML BAG 100 ML IV SCH ×2 (00:29→06:00)
[2017-11-16] MEDS: piperacillin/tazo 3.375gm/50ml 50 ML IV SCH ×4 (01:56→20:09)
[2017-11-16] MEDS: oxyCODONE IR 5mg (immed. release) tablet PO PRN ×4 (01:56→20:09)
[2017-11-16 03:00] VITALS: BP 126/76
[2017-11-16 06:00] VITALS: BP 139/82
[2017-11-16] MEDS: levoTHYROXINE 112mcg tablet PO SCH (07:51)
[2017-11-16] MEDS: multivitamins, therapeutics tablet PO SCH (07:52)
[2017-11-16] MEDS: levetiracetam 250mg tablet PO SCH ×2 (07:52→20:09)
[2017-11-16] MEDS: mineral oil/petrolatum ophthal oint EACHEYE SCH ×3 (08:00→19:13)
[2017-11-16 11:00] VITALS: BP 128/78
[2017-11-16 15:00] VITALS: BP 115/68
[2017-11-16] MEDS: traMADol 50MG tablet PO PRN (16:15)
[2017-11-16 19:00] VITALS: BP 120/73
[2017-11-16] MEDS: pantoprazole 40mg Tablet.DR PO SCH (20:09)
[2017-11-16 23:00] VITALS: BP 99/58
[2017-11-17] MEDS ORDERED: MET0.75G TP (00:10)
[2017-11-17] MEDS ORDERED: LYSI500T3 (00:10)
[2017-11-17] MEDS ORDERED: ASCO1CAP6 (00:10)
[2017-11-17] MEDS ORDERED: DOCU100C40 PO (00:10)
[2017-11-17] MEDS ORDERED: GLUC-219 (00:10)
[2017-11-17] MEDS ORDERED: FURO-150 PO (00:10)
[2017-11-17] MEDS ORDERED: FERR325T28 PO (00:10)
[2017-11-17] MEDS ORDERED: DICL75TA5 PO (00:10)
[2017-11-17] MEDS: mineral oil/petrolatum ophthal oint EACHEYE SCH ×2 (00:43→07:44)
[2017-11-17] MEDS: piperacillin/tazo 3.375gm/50ml 50 ML IV SCH ×4 (01:23→19:22)
[2017-11-17] MEDS: magnesium hydroxide 30ml (MOM) UD suspension PO PRN ×2 (02:33→19:27)
[2017-11-17] MEDS: oxyCODONE IR 5mg (immed. release) tablet PO PRN ×4 (02:33→19:23)
[2017-11-17 03:00] VITALS: BP 101/63
[2017-11-17 05:25] LABS: BASOPHILS % (AUTO) 0.3 % (0-1); EOSINOPHILS # (AUTO) 0.7 X10'3 (0-0.9); EOSINOPHILS % (AUTO) 7.9 % (0-6); HEMATOCRIT 26.3 % (35.0-45.0); HEMOGLOBIN 8.9 g/dl (12.0-16.0); LYMPHOCYTES # (AUTO) 1.2 X10'3 (1.1-4.8); LYMPHOCYTES % (AUTO) 13.9 % (21-51); MEAN CORPUSCULAR HEMOGLOBIN 31.4 PG (27.0-31.0); MEAN CORPUSCULAR HGB CONC 33.9 % (33.0-36.5); MEAN CORPUSCULAR VOLUME 92.7 FL (78-98); MEAN PLATELET VOLUME 6.8 FL (7.4-10.4); MONOCYTES # (AUTO) 0.9 X10'3 (0-0.9); MONOCYTES % (AUTO) 9.8 % (2-12); NEUTROPHILS # (AUTO) 6.1 X10'3 (1.8-7.7); NEUTROPHILS % (AUTO) 68.1 % (42-75); PLATELET COUNT 183 X10'3 (140-440); RED BLOOD COUNT 2.84 X10'6 (4.20-5.60)
[2017-11-17 06:19] LABS: ALANINE AMINOTRANSFERASE 24 U/L (12-78); ALBUMIN 1.9 G/DL (3.4-5.0); ALBUMIN/GLOBULIN RATIO 0.6 (1.1-1.5); ALKALINE PHOSPHATASE 73 IU/L (46-116); ANION GAP 3 (8-16); ASPARTATE AMINO TRANSFERASE 24 U/L (10-37); BILIRUBIN,TOTAL 0.8 MG/DL (0.1-1.0); BLOOD UREA NITROGEN 11 MG/DL (7-18); BUN/CREATININE RATIO 10.3 (6.6-38.0); CHLORIDE 98 MMOL/L (99-107); CREATININE 1.07 MG/DL (0.40-0.90); GLUCOSE 103 MG/DL (70-104); MAGNESIUM 1.6 MG/DL (1.5-2.4); PHOSPHORUS 3.4 MG/DL (2.3-4.5); SODIUM 132 MMOL/L (135-145); TOTAL CARBON DIOXIDE 30.7 MMOL/L (24-32); TOTAL PROTEIN 5.2 G/DL (6.4-8.2); eGFR 50 ML/MIN
[2017-11-17 06:47] VITALS: BP 96/58
[2017-11-17] MEDS: multivitamins, therapeutics tablet PO SCH (07:53)
[2017-11-17] MEDS: ferrous sulfate 325mg tablet PO SCH (07:53)
[2017-11-17] MEDS: levetiracetam 250mg tablet PO SCH ×2 (07:53→19:22)
[2017-11-17] MEDS: levoTHYROXINE 112mcg tablet PO SCH (07:53)
[2017-11-17] MEDS: pantoprazole 40mg Tablet.DR PO SCH ×2 (07:53→19:22)
[2017-11-17 11:00] VITALS: BP 101/60
[2017-11-17 15:00] VITALS: BP 99/64
[2017-11-17] MEDS: traMADol 50MG tablet PO PRN (17:35)
[2017-11-17 19:00] VITALS: BP 112/68
[2017-11-17] MEDS: lactobacillus rhamnosus 10,000 MMU CELLS/CAPSULE PO SCH (19:22)
[2017-11-17] MEDS: bisacodyl 10mg suppository rectal RC PRN (22:01)
[2017-11-17 23:00] VITALS: BP 109/66
[2017-11-18] MEDS: oxyCODONE IR 5mg (immed. release) tablet PO PRN ×4 (00:39→16:04)
[2017-11-18] MEDS: piperacillin/tazo 3.375gm/50ml 50 ML IV SCH ×4 (02:07→19:07)
[2017-11-18 03:00] VITALS: BP 108/67
[2017-11-18 05:00] LABS: BASOPHILS % (AUTO) 0.3 % (0-1); EOSINOPHILS # (AUTO) 0.5 X10'3 (0-0.9); EOSINOPHILS % (AUTO) 5.9 % (0-6); HEMATOCRIT 25.7 % (35.0-45.0); HEMOGLOBIN 8.6 g/dl (12.0-16.0); LYMPHOCYTES # (AUTO) 1.4 X10'3 (1.1-4.8); LYMPHOCYTES % (AUTO) 17.1 % (21-51); MEAN CORPUSCULAR HEMOGLOBIN 31.2 PG (27.0-31.0); MEAN CORPUSCULAR HGB CONC 33.4 % (33.0-36.5); MEAN CORPUSCULAR VOLUME 93.4 FL (78-98); MEAN PLATELET VOLUME 7.1 FL (7.4-10.4); MONOCYTES # (AUTO) 0.8 X10'3 (0-0.9); MONOCYTES % (AUTO) 9.5 % (2-12); NEUTROPHILS # (AUTO) 5.4 X10'3 (1.8-7.7); NEUTROPHILS % (AUTO) 67.2 % (42-75); PLATELET COUNT 173 X10'3 (140-440); RED BLOOD COUNT 2.75 X10'6 (4.20-5.60); RED CELL DISTRIBUTION WIDTH 18.9 % (11.5-14.5)
[2017-11-18 05:27] LABS: ALANINE AMINOTRANSFERASE 18 U/L (12-78); ALBUMIN 1.8 G/DL (3.4-5.0); ALBUMIN/GLOBULIN RATIO 0.5 (1.1-1.5); ALKALINE PHOSPHATASE 75 IU/L (46-116); ANION GAP 4 (8-16); ASPARTATE AMINO TRANSFERASE 23 U/L (10-37); BILIRUBIN,TOTAL 0.5 MG/DL (0.1-1.0); BLOOD UREA NITROGEN 10 MG/DL (7-18); BUN/CREATININE RATIO 9.7 (6.6-38.0); CALCIUM 7.7 MG/DL (8.5-10.1); CHLORIDE 98 MMOL/L (99-107); CREATININE 1.03 MG/DL (0.40-0.90); GLUCOSE 93 MG/DL (70-104); MAGNESIUM 1.8 MG/DL (1.5-2.4); POTASSIUM 4.3 MMOL/L (3.5-5.1); SODIUM 134 MMOL/L (135-145); TOTAL CARBON DIOXIDE 31.7 MMOL/L (24-32); TOTAL PROTEIN 5.3 G/DL (6.4-8.2); eGFR 52 ML/MIN
[2017-11-18 06:00] VITALS: BP 111/63
[2017-11-18] MEDS: levetiracetam 250mg tablet PO SCH ×2 (07:07→19:07)
[2017-11-18] MEDS: pantoprazole 40mg Tablet.DR PO SCH ×2 (07:07→19:07)
[2017-11-18] MEDS: multivitamins, therapeutics tablet PO SCH (07:07)
[2017-11-18] MEDS: lactobacillus rhamnosus 10,000 MMU CELLS/CAPSULE PO SCH ×2 (07:07→19:07)
[2017-11-18] MEDS: levoTHYROXINE 112mcg tablet PO SCH (07:07)
[2017-11-18 11:00] VITALS: BP 102/62
[2017-11-18] MEDS: bisacodyl 10mg suppository rectal RC PRN (14:13)
[2017-11-18 15:00] VITALS: BP 107/59
[2017-11-18 19:00] VITALS: BP 131/61
[2017-11-18] MEDS: magnesium hydroxide 30ml (MOM) UD suspension PO PRN (19:07)
[2017-11-18 23:00] VITALS: BP 105/64
[2017-11-19] VITALS (7 sets, daily range): BP systolic 105–122; BP diastolic 59–68
[2017-11-19] MEDS: piperacillin/tazo 3.375gm/50ml 50 ML IV SCH ×4 (03:53→22:08)
[2017-11-19 06:12] LABS: ALANINE AMINOTRANSFERASE 18 U/L (12-78); ALBUMIN 1.9 G/DL (3.4-5.0); ALBUMIN/GLOBULIN RATIO 0.6 (1.1-1.5); ALKALINE PHOSPHATASE 74 IU/L (46-116); ANION GAP 5 (8-16); ASPARTATE AMINO TRANSFERASE 21 U/L (10-37); BASOPHILS % (AUTO) 0.4 % (0-1); BILIRUBIN,TOTAL 0.4 MG/DL (0.1-1.0); BLOOD UREA NITROGEN 10 MG/DL (7-18); BUN/CREATININE RATIO 8.9 (6.6-38.0); CALCIUM 8.1 MG/DL (8.5-10.1); CHLORIDE 100 MMOL/L (99-107); CREATININE 1.12 MG/DL (0.40-0.90); EOSINOPHILS # (AUTO) 0.4 X10'3 (0-0.9); EOSINOPHILS % (AUTO) 6.5 % (0-6); GLUCOSE 99 MG/DL (70-104); HEMATOCRIT 26.4 % (35.0-45.0); HEMOGLOBIN 8.7 g/dl (12.0-16.0); LYMPHOCYTES # (AUTO) 1.2 X10'3 (1.1-4.8); LYMPHOCYTES % (AUTO) 20.3 % (21-51); MAGNESIUM 1.9 MG/DL (1.5-2.4); MEAN CORPUSCULAR HEMOGLOBIN 30.6 PG (27.0-31.0); MEAN CORPUSCULAR HGB CONC 32.8 % (33.0-36.5); MEAN CORPUSCULAR VOLUME 93.4 FL (78-98); MEAN PLATELET VOLUME 7.3 FL (7.4-10.4); MONOCYTES # (AUTO) 0.6 X10'3 (0-0.9); MONOCYTES % (AUTO) 10.7 % (2-12); NEUTROPHILS # (AUTO) 3.7 X10'3 (1.8-7.7); NEUTROPHILS % (AUTO) 62.1 % (42-75); PHOSPHORUS 2.9 MG/DL (2.3-4.5); PLATELET COUNT 183 X10'3 (140-440); POTASSIUM 4.2 MMOL/L (3.5-5.1); RED BLOOD COUNT 2.83 X10'6 (4.20-5.60); RED CELL DISTRIBUTION WIDTH 17.8 % (11.5-14.5); SODIUM 136 MMOL/L (135-145); TOTAL CARBON DIOXIDE 31.1 MMOL/L (24-32); TOTAL PROTEIN 5.3 G/DL (6.4-8.2); WHITE BLOOD COUNT 5.9 X10'3 (4.5-11.0); eGFR 47 ML/MIN
[2017-11-19] MEDS: ferrous sulfate 325mg tablet PO SCH (08:43)
[2017-11-19] MEDS: lactobacillus rhamnosus 10,000 MMU CELLS/CAPSULE PO SCH ×2 (08:44→22:09)
[2017-11-19] MEDS: levoTHYROXINE 112mcg tablet PO SCH (08:44)
[2017-11-19] MEDS: pantoprazole 40mg Tablet.DR PO SCH ×2 (08:44→22:09)
[2017-11-19] MEDS: levetiracetam 250mg tablet PO SCH ×2 (08:44→22:09)
[2017-11-19] MEDS: multivitamins, therapeutics tablet PO SCH (08:44)
[2017-11-19] MEDS: oxyCODONE IR 5mg (immed. release) tablet PO PRN (09:24)
[2017-11-19 09:29] LABS: PLATELET ESTIMATE NORMAL
[2017-11-19 09:30] LABS: ANISOCYTOSIS 2+
[2017-11-19 09:31] LABS: HYPOCHROMASIA 1+
[2017-11-19] MEDS ORDERED: bisacodyl 5mg tablet.DR PO PRN (14:45)
[2017-11-19] MEDS: docusate sod 100mg capsule PO SCH ×2 (15:52→22:09)
[2017-11-19] MEDS: polyethylene glycol 3350 17gm powd pack PO SCH ×2 (15:52→22:10)
[2017-11-20] MEDS: piperacillin/tazo 3.375gm/50ml 50 ML IV SCH ×2 (02:50→08:27)
[2017-11-20 05:39] LABS: BASOPHILS % (AUTO) 0.4 % (0-1); EOSINOPHILS # (AUTO) 0.3 X10'3 (0-0.9); EOSINOPHILS % (AUTO) 5.9 % (0-6); HEMATOCRIT 26.1 % (35.0-45.0); HEMOGLOBIN 8.6 g/dl (12.0-16.0); LYMPHOCYTES # (AUTO) 0.9 X10'3 (1.1-4.8); LYMPHOCYTES % (AUTO) 17.7 % (21-51); MEAN CORPUSCULAR VOLUME 93.9 FL (78-98); MEAN PLATELET VOLUME 7.1 FL (7.4-10.4); MONOCYTES # (AUTO) 0.6 X10'3 (0-0.9); MONOCYTES % (AUTO) 10.5 % (2-12); NEUTROPHILS # (AUTO) 3.5 X10'3 (1.8-7.7); NEUTROPHILS % (AUTO) 65.5 % (42-75); PLATELET COUNT 193 X10'3 (140-440); RED BLOOD COUNT 2.78 X10'6 (4.20-5.60); RED CELL DISTRIBUTION WIDTH 19.8 % (11.5-14.5); WHITE BLOOD COUNT 5.4 X10'3 (4.5-11.0)
[2017-11-20 06:00] VITALS: BP 135/77
[2017-11-20 06:19] LABS: ALANINE AMINOTRANSFERASE 14 U/L (12-78); ALBUMIN 1.9 G/DL (3.4-5.0); ALBUMIN/GLOBULIN RATIO 0.5 (1.1-1.5); ALKALINE PHOSPHATASE 73 IU/L (46-116); ANION GAP 9 (8-16); ASPARTATE AMINO TRANSFERASE 21 U/L (10-37); BILIRUBIN,TOTAL 0.3 MG/DL (0.1-1.0); BLOOD UREA NITROGEN 9 MG/DL (7-18); BUN/CREATININE RATIO 8.1 (6.6-38.0); CALCIUM 7.8 MG/DL (8.5-10.1); CHLORIDE 102 MMOL/L (99-107); CREATININE 1.11 MG/DL (0.40-0.90); GLUCOSE 122 MG/DL (70-104); MAGNESIUM 1.7 MG/DL (1.5-2.4); POTASSIUM 4.1 MMOL/L (3.5-5.1); SODIUM 139 MMOL/L (135-145); TOTAL CARBON DIOXIDE 28.4 MMOL/L (24-32); TOTAL PROTEIN 5.4 G/DL (6.4-8.2); eGFR 48 ML/MIN
[2017-11-20] MEDS ORDERED: methylnaltrexone br 12mg/0.6ml inj***SubQ only SQ SCH (08:00)
[2017-11-20] MEDS: multivitamins, therapeutics tablet PO SCH (08:25)
[2017-11-20] MEDS: docusate sod 100mg capsule PO SCH ×3 (08:25→19:13)
[2017-11-20] MEDS: pantoprazole 40mg Tablet.DR PO SCH ×2 (08:26→19:14)
[2017-11-20] MEDS: levetiracetam 250mg tablet PO SCH ×2 (08:26→19:14)
[2017-11-20] MEDS: lactobacillus rhamnosus 10,000 MMU CELLS/CAPSULE PO SCH ×2 (08:26→19:14)
[2017-11-20] MEDS: levoTHYROXINE 112mcg tablet PO SCH (08:26)
[2017-11-20] MEDS: traMADol 50MG tablet PO PRN (08:26)
[2017-11-20] MEDS: methylnaltrexone br 12mg/0.6ml inj***SubQ only SQ SCH (08:27)
[2017-11-20 11:00] VITALS: BP 123/72
[2017-11-20] MEDS: oxyCODONE IR 5mg (immed. release) tablet PO PRN (12:54)
[2017-11-20 15:00] VITALS: BP 121/72
[2017-11-20 19:00] VITALS: BP 139/70
[2017-11-20] MEDS: polyethylene glycol 3350 17gm powd pack PO SCH ×2 (19:14)
[2017-11-20 23:00] VITALS: BP 136/80
[2017-11-21] MEDS: oxyCODONE IR 5mg (immed. release) tablet PO PRN ×4 (01:46→23:39)
[2017-11-21 03:00] VITALS: BP 131/75
[2017-11-21 05:30] LABS: BASOPHILS % (AUTO) 0.5 % (0-1); EOSINOPHILS # (AUTO) 0.3 X10'3 (0-0.9); EOSINOPHILS % (AUTO) 5.2 % (0-6); HEMATOCRIT 26.6 % (35.0-45.0); HEMOGLOBIN 8.9 g/dl (12.0-16.0); LYMPHOCYTES # (AUTO) 1.1 X10'3 (1.1-4.8); LYMPHOCYTES % (AUTO) 17.5 % (21-51); MEAN CORPUSCULAR HEMOGLOBIN 31.2 PG (27.0-31.0); MEAN CORPUSCULAR HGB CONC 33.5 % (33.0-36.5); MEAN CORPUSCULAR VOLUME 93.2 FL (78-98); MEAN PLATELET VOLUME 7.2 FL (7.4-10.4); MONOCYTES # (AUTO) 0.7 X10'3 (0-0.9); MONOCYTES % (AUTO) 11.6 % (2-12); NEUTROPHILS % (AUTO) 65.2 % (42-75); PLATELET COUNT 214 X10'3 (140-440); RED BLOOD COUNT 2.85 X10'6 (4.20-5.60); RED CELL DISTRIBUTION WIDTH 18.8 % (11.5-14.5); WHITE BLOOD COUNT 6.1 X10'3 (4.5-11.0)
[2017-11-21 06:00] VITALS: BP 125/73
[2017-11-21 06:24] LABS: ALANINE AMINOTRANSFERASE 19 U/L (12-78); ALBUMIN/GLOBULIN RATIO 0.5 (1.1-1.5); ALKALINE PHOSPHATASE 79 IU/L (46-116); ANION GAP 7 (8-16); ASPARTATE AMINO TRANSFERASE 21 U/L (10-37); BILIRUBIN,TOTAL 0.3 MG/DL (0.1-1.0); BLOOD UREA NITROGEN 12 MG/DL (7-18); BUN/CREATININE RATIO 11.5 (6.6-38.0); CALCIUM 8.3 MG/DL (8.5-10.1); CHLORIDE 102 MMOL/L (99-107); CREATININE 1.04 MG/DL (0.40-0.90); GLUCOSE 107 MG/DL (70-104); MAGNESIUM 1.7 MG/DL (1.5-2.4); PHOSPHORUS 2.8 MG/DL (2.3-4.5); SODIUM 138 MMOL/L (135-145); TOTAL PROTEIN 5.7 G/DL (6.4-8.2); eGFR 51 ML/MIN
[2017-11-21] MEDS: levoTHYROXINE 112mcg tablet PO SCH (07:15)
[2017-11-21] MEDS: lactobacillus rhamnosus 10,000 MMU CELLS/CAPSULE PO SCH ×2 (07:15→19:45)
[2017-11-21] MEDS: docusate sod 100mg capsule PO SCH ×3 (07:15→19:45)
[2017-11-21] MEDS: ferrous sulfate 325mg tablet PO SCH (07:15)
[2017-11-21] MEDS: multivitamins, therapeutics tablet PO SCH (07:15)
[2017-11-21] MEDS: levetiracetam 250mg tablet PO SCH ×2 (07:15→19:45)
[2017-11-21] MEDS: pantoprazole 40mg Tablet.DR PO SCH ×2 (07:15→19:45)
[2017-11-21] MEDS: methylnaltrexone br 12mg/0.6ml inj***SubQ only SQ SCH (07:15)
[2017-11-21 11:00] VITALS: BP 164/88
[2017-11-21 15:00] VITALS: BP 154/84
[2017-11-21] MEDS: magnesium hydroxide 30ml (MOM) UD suspension PO PRN (16:49)
[2017-11-21 19:00] VITALS: BP 151/85
[2017-11-21] MEDS: polyethylene glycol 3350 17gm powd pack PO SCH ×2 (19:44→19:45)
[2017-11-21 22:45] VITALS: BP 141/75
[2017-11-22 03:14] VITALS: BP 138/72
[2017-11-22 05:30] VITALS: BP 123/71
[2017-11-22 06:22] LABS: BASOPHILS % (AUTO) 0.3 % (0-1); EOSINOPHILS # (AUTO) 0.2 X10'3 (0-0.9); EOSINOPHILS % (AUTO) 2.8 % (0-6); HEMATOCRIT 24.7 % (35.0-45.0); HEMOGLOBIN 8.2 g/dl (12.0-16.0); LYMPHOCYTES # (AUTO) 1.2 X10'3 (1.1-4.8); LYMPHOCYTES % (AUTO) 16.7 % (21-51); MEAN CORPUSCULAR HEMOGLOBIN 30.9 PG (27.0-31.0); MEAN CORPUSCULAR HGB CONC 33.4 % (33.0-36.5); MEAN CORPUSCULAR VOLUME 92.6 FL (78-98); MEAN PLATELET VOLUME 6.9 FL (7.4-10.4); MONOCYTES # (AUTO) 0.9 X10'3 (0-0.9); MONOCYTES % (AUTO) 13.3 % (2-12); NEUTROPHILS # (AUTO) 4.7 X10'3 (1.8-7.7); NEUTROPHILS % (AUTO) 66.9 % (42-75); PLATELET COUNT 205 X10'3 (140-440); RED BLOOD COUNT 2.66 X10'6 (4.20-5.60); RED CELL DISTRIBUTION WIDTH 19.1 % (11.5-14.5)
[2017-11-22 06:45] LABS: ALANINE AMINOTRANSFERASE 19 U/L (12-78); ALBUMIN/GLOBULIN RATIO 0.5 (1.1-1.5); ALKALINE PHOSPHATASE 73 IU/L (46-116); ANION GAP 6 (8-16); ASPARTATE AMINO TRANSFERASE 17 U/L (10-37); BILIRUBIN,TOTAL 0.5 MG/DL (0.1-1.0); CALCIUM 8.7 MG/DL (8.5-10.1); CHLORIDE 101 MMOL/L (99-107); CREATININE 0.93 MG/DL (0.40-0.90); GLUCOSE 100 MG/DL (70-104); MAGNESIUM 1.7 MG/DL (1.5-2.4); SODIUM 136 MMOL/L (135-145); TOTAL CARBON DIOXIDE 29.4 MMOL/L (24-32); TOTAL PROTEIN 5.7 G/DL (6.4-8.2); eGFR 58 ML/MIN
[2017-11-22] MEDS: levoTHYROXINE 112mcg tablet PO SCH (07:12)
[2017-11-22] MEDS: pantoprazole 40mg Tablet.DR PO SCH ×2 (07:12→19:53)
[2017-11-22] MEDS: levetiracetam 250mg tablet PO SCH ×2 (07:12→19:53)
[2017-11-22] MEDS: lactobacillus rhamnosus 10,000 MMU CELLS/CAPSULE PO SCH ×2 (07:12→19:52)
[2017-11-22] MEDS: docusate sod 100mg capsule PO SCH ×3 (07:12→19:52)
[2017-11-22 07:13] LABS: BLOOD UREA NITROGEN 10 MG/DL (7-18); BUN/CREATININE RATIO 10.8 (6.6-38.0)
[2017-11-22] MEDS: methylnaltrexone br 12mg/0.6ml inj***SubQ only SQ SCH (07:13)
[2017-11-22] MEDS: multivitamins, therapeutics tablet PO SCH (07:13)
[2017-11-22 11:00] VITALS: BP 123/71
[2017-11-22 15:00] VITALS: BP 119/64
[2017-11-22 19:00] VITALS: BP 147/84
[2017-11-22] MEDS: oxyCODONE IR 5mg (immed. release) tablet PO PRN (19:52)
[2017-11-22] MEDS: polyethylene glycol 3350 17gm powd pack PO SCH ×2 (19:53)
[2017-11-22 23:00] VITALS: BP 140/76
[2017-11-23 03:00] VITALS: BP 132/74
[2017-11-23 05:30] VITALS: BP 130/73
[2017-11-23 05:41] LABS: BASOPHILS % (AUTO) 0.4 % (0-1); EOSINOPHILS # (AUTO) 0.3 X10'3 (0-0.9); EOSINOPHILS % (AUTO) 4.2 % (0-6); HEMATOCRIT 24.5 % (35.0-45.0); HEMOGLOBIN 8.1 g/dl (12.0-16.0); LYMPHOCYTES # (AUTO) 1.2 X10'3 (1.1-4.8); LYMPHOCYTES % (AUTO) 17.9 % (21-51); MEAN CORPUSCULAR HGB CONC 33.3 % (33.0-36.5); MEAN CORPUSCULAR VOLUME 92.9 FL (78-98); MEAN PLATELET VOLUME 7.1 FL (7.4-10.4); MONOCYTES # (AUTO) 0.8 X10'3 (0-0.9); MONOCYTES % (AUTO) 11.9 % (2-12); NEUTROPHILS # (AUTO) 4.4 X10'3 (1.8-7.7); NEUTROPHILS % (AUTO) 65.6 % (42-75); PLATELET COUNT 197 X10'3 (140-440); RED BLOOD COUNT 2.63 X10'6 (4.20-5.60); RED CELL DISTRIBUTION WIDTH 18.9 % (11.5-14.5); WHITE BLOOD COUNT 6.7 X10'3 (4.5-11.0)
[2017-11-23 06:12] LABS: ALANINE AMINOTRANSFERASE 15 U/L (12-78); ALBUMIN/GLOBULIN RATIO 0.5 (1.1-1.5); ALKALINE PHOSPHATASE 74 IU/L (46-116); ANION GAP 8 (8-16); ASPARTATE AMINO TRANSFERASE 19 U/L (10-37); BILIRUBIN,TOTAL 0.4 MG/DL (0.1-1.0); BLOOD UREA NITROGEN 12 MG/DL (7-18); BUN/CREATININE RATIO 12.5 (6.6-38.0); CALCIUM 8.8 MG/DL (8.5-10.1); CHLORIDE 101 MMOL/L (99-107); CREATININE 0.96 MG/DL (0.40-0.90); GLUCOSE 104 MG/DL (70-104); MAGNESIUM 1.7 MG/DL (1.5-2.4); PHOSPHORUS 3.8 MG/DL (2.3-4.5); POTASSIUM 4.2 MMOL/L (3.5-5.1); SODIUM 137 MMOL/L (135-145); TOTAL CARBON DIOXIDE 27.8 MMOL/L (24-32); TOTAL PROTEIN 5.7 G/DL (6.4-8.2); eGFR 56 ML/MIN
[2017-11-23] MEDS: methylnaltrexone br 12mg/0.6ml inj***SubQ only SQ SCH (07:29)
[2017-11-23] MEDS: ferrous sulfate 325mg tablet PO SCH (07:41)
[2017-11-23] MEDS: lactobacillus rhamnosus 10,000 MMU CELLS/CAPSULE PO SCH ×2 (07:41→19:25)
[2017-11-23] MEDS: docusate sod 100mg capsule PO SCH ×3 (07:41→19:25)
[2017-11-23] MEDS: pantoprazole 40mg Tablet.DR PO SCH ×2 (07:41→19:25)
[2017-11-23] MEDS: multivitamins, therapeutics tablet PO SCH (07:41)
[2017-11-23] MEDS: levoTHYROXINE 112mcg tablet PO SCH (07:41)
[2017-11-23] MEDS: levetiracetam 250mg tablet PO SCH ×2 (07:42→19:25)
[2017-11-23] MEDS: oxyCODONE IR 5mg (immed. release) tablet PO PRN ×3 (07:49→23:26)
[2017-11-23 11:00] VITALS: BP 132/70
[2017-11-23 19:00] VITALS: BP 145/74
[2017-11-23] MEDS: polyethylene glycol 3350 17gm powd pack PO SCH ×2 (19:24→21:00)
[2017-11-24] MEDS: oxyCODONE IR 5mg (immed. release) tablet PO PRN ×2 (03:46→15:13)
[2017-11-24 04:48] LABS: BASOPHILS % (AUTO) 0.5 % (0-1); EOSINOPHILS # (AUTO) 0.3 X10'3 (0-0.9); EOSINOPHILS % (AUTO) 4.7 % (0-6); HEMATOCRIT 24.9 % (35.0-45.0); HEMOGLOBIN 8.4 g/dl (12.0-16.0); LYMPHOCYTES # (AUTO) 1.2 X10'3 (1.1-4.8); LYMPHOCYTES % (AUTO) 19.8 % (21-51); MEAN CORPUSCULAR HGB CONC 33.5 % (33.0-36.5); MEAN CORPUSCULAR VOLUME 92.6 FL (78-98); MEAN PLATELET VOLUME 7.1 FL (7.4-10.4); MONOCYTES # (AUTO) 0.7 X10'3 (0-0.9); MONOCYTES % (AUTO) 10.7 % (2-12); NEUTROPHILS % (AUTO) 64.3 % (42-75); PLATELET COUNT 218 X10'3 (140-440); RED BLOOD COUNT 2.69 X10'6 (4.20-5.60); RED CELL DISTRIBUTION WIDTH 18.7 % (11.5-14.5); WHITE BLOOD COUNT 6.2 X10'3 (4.5-11.0)
[2017-11-24 05:00] VITALS: BP 144/78
[2017-11-24 05:12] LABS: ALANINE AMINOTRANSFERASE 15 U/L (12-78); ALBUMIN/GLOBULIN RATIO 0.5 (1.1-1.5); ALKALINE PHOSPHATASE 87 IU/L (46-116); ANION GAP 6 (8-16); ASPARTATE AMINO TRANSFERASE 20 U/L (10-37); BILIRUBIN,TOTAL 0.3 MG/DL (0.1-1.0); BLOOD UREA NITROGEN 16 MG/DL (7-18); BUN/CREATININE RATIO 16.7 (6.6-38.0); CHLORIDE 101 MMOL/L (99-107); CREATININE 0.96 MG/DL (0.40-0.90); GLUCOSE 100 MG/DL (70-104); MAGNESIUM 1.6 MG/DL (1.5-2.4); PHOSPHORUS 3.9 MG/DL (2.3-4.5); POTASSIUM 4.5 MMOL/L (3.5-5.1); SODIUM 137 MMOL/L (135-145); TOTAL CARBON DIOXIDE 29.6 MMOL/L (24-32); TOTAL PROTEIN 5.9 G/DL (6.4-8.2); eGFR 56 ML/MIN
[2017-11-24 05:30] VITALS: BP 127/70
[2017-11-24] MEDS: multivitamins, therapeutics tablet PO SCH (07:29)
[2017-11-24] MEDS: pantoprazole 40mg Tablet.DR PO SCH (07:29)
[2017-11-24] MEDS: levoTHYROXINE 112mcg tablet PO SCH (07:29)
[2017-11-24] MEDS: docusate sod 100mg capsule PO SCH ×2 (07:29→13:00)
[2017-11-24] MEDS: lactobacillus rhamnosus 10,000 MMU CELLS/CAPSULE PO SCH (07:30)
[2017-11-24] MEDS: levetiracetam 250mg tablet PO SCH (07:30)
[2017-11-24 11:00] VITALS: BP 127/70
[2017-11-24] MEDS ORDERED: ASCO1CAP6 PO (13:58)
[2017-11-24] MEDS ORDERED: BISA5TAB10 PO (13:58)
[2017-11-24] MEDS ORDERED: PANT40TA4 PO (14:00)
== END 2017-11-24 15:45 | disposition home or self-care (01) | DRG 377 ==
LOC: ER 14:40 → ED HOLD 15:49 → CICU 2S 16:55 → PCU 3S 11-15 14:00
PROVIDERS: ADMIT Internal Medicine Critical Care Medicine; ATTEND Internal Medicine Critical Care Medicine
PROC: 30233N1 Transfusion of Nonautologous Red Blood Cells into Peripheral Vein, Percutaneous Approach (ICD-10-PCS; 2017-11-11)
PROC: 0DB78ZX Excision of Stomach, Pylorus, Via Natural or Artificial Opening Endoscopic, Diagnostic (ICD-10-PCS; principal; 2017-11-12)
PROC: 3E0G8GC Introduction of Other Therapeutic Substance into Upper GI, Via Natural or Artificial Opening Endoscopic (ICD-10-PCS; 2017-11-12)
PROC: 0RSKXZZ Reposition Left Shoulder Joint, External Approach (ICD-10-PCS; 2017-11-13)
DX: K29.71 Gastritis, unspecified, with bleeding (principal); R57.1 Hypovolemic shock; E87.2 Acidosis; N17.9 Acute kidney failure, unspecified; N39.0 Urinary tract infection, site not specified; E87.6 Hypokalemia; I48.91 Unspecified atrial fibrillation; D64.9 Anemia, unspecified; E03.9 Hypothyroidism, unspecified; I10 Essential (primary) hypertension; K44.9 Diaphragmatic hernia without obstruction or gangrene; K26.9 Duodenal ulcer, unspecified as acute or chronic, without hemorrhage or perforation; K31.89 Other diseases of stomach and duodenum; T39.395A Adverse effect of other nonsteroidal anti-inflammatory drugs [NSAID], initial encounter; T39.015A Adverse effect of aspirin, initial encounter; S43.005A Unspecified dislocation of left shoulder joint, initial encounter; K59.00 Constipation, unspecified; K21.9 Gastro-esophageal reflux disease without esophagitis; M19.012 Primary osteoarthritis, left shoulder; X58.XXXA Exposure to other specified factors, initial encounter; M54.5 Low back pain; F32.9 Major depressive disorder, single episode, unspecified; Z96.659 Presence of unspecified artificial knee joint; Z98.891 History of uterine scar from previous surgery; Z88.8 Allergy status to other drugs, medicaments and biological substances; Z88.6 Allergy status to analgesic agent; Z79.82 Long term (current) use of aspirin; Z79.899 Other long term (current) drug therapy; Y92.89 Other specified places as the place of occurrence of the external cause; Y93.89 Activity, other specified; Y99.8 Other external cause status
CPT/HCPCS: 36415; 43239; 73020; 73030; 80053; 80177; 82728; 82948; 83540; 83550; 83605; 83690; 83735; 84100; 84145; 85025; 85027; 85610; 85651; 85730; 86870; 86880; 86885; 86900; 86901; 86902; 86905; 86920; 86922; 87040; 87070; 87088; 87186; 88305; 93306; 93931; 93971; 94760; 95816; 96374; 96375; 97110; 97116; 97162; 97530; 99291; A4620; A6212; A6213; A6250; A6258; C1758; C9113; G0500; J0171; J2250; J2405; J2543; J2704; J3010; J3480; J7030; P9016; P9045